=== PATIENT | female | born 1995 | race Caucasian/White ===

== ENCOUNTER → 2017-08-26 | Outpatient (CLI) | payer BC ==
--- NOTE | 2017-08-26 15:37 | US ---
EXAMINATION TYPE: US abdomen complete DATE OF EXAM: 08/26/2017 COMPARISON: NONE CLINICAL HISTORY: 22-year-old female R10.11 Rt Upper Quadrant Pain, R11.2 Nausea vomiting. Loss of ap petite, pt states possible side affect to medication . TECHNIQUE: Multiple sonographic images of the abdomen are obtained. FINDINGS: Liver Length: 13.2 cm Gallbladder Wall: 0.2 cm CBD: 0.4 cm Spleen: 10.4 cm Right Kidney: 10.8 x 4.1 x 4.3 cm Left Kidney: 11.7 x 3.5 x 4.6 cm Pancreas: wnl Liver: Subtle rounded isoechoic area along the anterior right liver lobe measuring 2.8 x 2.0 x 2.4 c m Gallbladder: wnl Evidence for sonographic Santoro's sign: No CBD: wnl Spleen: wnl Right Kidney: wnl Left Kidney: wnl Upper IVC: wnl Abd Aorta: wnl IMPRESSION: Possible subtle 2.8 cm anterior right liver mass. A 3 month follow-up exam can confirm this finding. If the finding persists, MRI can determine enhancement characteristics. In the absence of underlying viral hepatitis, the more likely differential considerations include FNH and hepatic adenoma.
== END | disposition home or self-care (01) ==
LOC: RADUSWWP 12:33
PROVIDERS: ATTEND Internal Medicine
DX: R10.11 Right upper quadrant pain (principal); R11.2 Nausea with vomiting, unspecified
CPT/HCPCS: 76700

== ENCOUNTER → 2017-09-02 | Outpatient (CLI) | payer BC ==
--- NOTE | 2017-09-02 08:43 | CT ---
EXAMINATION TYPE: CT abdomen w con DATE OF EXAM: 09/02/2017 COMPARISON: NONE at this location. INDICATION: Liver mass DLP: 574 mGycm, Automated exposure control for dose reduction was used. CONTRAST: 100 ml mL of Omnipaque 300. Study performed with Oral Contrast TECHNIQUE: Axial images were obtained from above the diaphragm to the pubic rami in the axial plane a t 5 mm thick sections. Reconstructed images are reviewed on the computer in the coronal plane. FINDINGS: Limited CT sections are obtained the lung bases. The lung bases are clear. CT ABDOMEN: Liver: Normal. No discrete mass. There are no comparison studies. Ultrasound has not been performed, consider ultrasound. MRI is an alternative imaging modality to evaluate the liver. Spleen: Normal Pancreas: Normal Adrenal glands: The adrenal glands are normal. Gallbladder: Normal Kidneys: No masses are evident. No hydronephrosis is present. No cysts are present. Delayed images were obtained through the kidneys, which remain unremarkable. Aorta: Vascular calcification is within the aorta. Inferior vena cava: Normal. Loops of bowel as visualized are normal. Osseous structures: No suspicious lytic or sclerotic lesions. IMPRESSIONS: 1. No suspicious abnormality. 2. No discrete liver mass identified. 3. Examination is somewhat limited with late phase contrast only due to difficulties with injection o f patient cooperation during the exam.
== END | disposition home or self-care (01) ==
LOC: RADCTMAIN 06:42
PROVIDERS: ATTEND Internal Medicine
DX: R19.09 Other intra-abdominal and pelvic swelling, mass and lump (principal)
CPT/HCPCS: 74160; Q9967

== ENCOUNTER → 2019-09-26 | Outpatient (CLI) | payer BC ==
--- NOTE | 2019-10-02 12:48 | PE ---
Nuclear medicine PET/CT HISTORY: Melanoma, subsequent Patient received 13.1 mCi F-18 FDG intravenously in delayed whole-body scanning was performed. An att enuation correction and localization CT scan was performed. Correlation to CT abdomen 2016. Head and neck show no evident adenopathy. No suspicious hypermetabolic uptake. Chest shows no pulmonary nodule. No pleural or pericardial effusion. No mediastinal, axillary, or hil ar adenopathy. No suspicious hypermetabolic uptake. ABDOMEN: Surgical clips are present in left groin. No evident liver mass. No retroperitoneal adenopat hy or suspicious hypermetabolic uptake. There is minimal fluid in the pelvis which may be physiologic . Osseous structures are within normal limits. No suspicious uptake. Lower extremities are unremarkable. IMPRESSION: No suspicious hypermetabolic uptake.
== END | disposition home or self-care (01) ==
LOC: RADPETMAIN 08:18
PROVIDERS: ATTEND Internal Medicine Hematology & Oncology
DX: C43.8 Malignant melanoma of overlapping sites of skin (principal)
CPT/HCPCS: 78816; A9552

== ENCOUNTER → 2019-10-16 | Outpatient (CLI) | payer BC ==
--- NOTE | 2019-10-16 13:46 | US ---
EXAMINATION TYPE: US kidneys/renal and bladder DATE OF EXAM: 10/16/2019 COMPARISON: CT 09/02/2017, US 08/26/2017 CLINICAL HISTORY: N30.80 cystitis without hematuria. EXAM MEASUREMENTS: Right Kidney: 10.3 x 3.4 x 4.1 cm Left Kidney: 11.5 x 3.8 x 4.2 cm Right Kidney: No hydronephrosis or masses seen Left Kidney: No hydronephrosis or masses seen Bladder: wnl Bilateral Jets seen: Yes There is no evidence for hydronephrosis at this point in time. No nephrolithiasis is seen. No leidy s are identified. The urinary bladder is anechoic. Bilateral ureteral jets are seen. IMPRESSION: Unremarkable study.
== END | disposition home or self-care (01) ==
LOC: RADUSWWP 10:23
PROVIDERS: ATTEND Urology
DX: N30.80 Other cystitis without hematuria (principal)
CPT/HCPCS: 76770